=== PATIENT | female | born 1945 | race Caucasian/White ===

== ENCOUNTER 2024-08-01 10:34 | Emergency (ER) | payer MEDICARE, OTHER, SELFPAY ==
[2024-08-01 10:34] VITALS: BP 137/116; PULSE 158; RESP 22; TEMP 36; O2SAT 98
--- NOTE | 2024-08-01 10:50 | EKG12_ITS ---
Test Reason : PALP Blood Pressure : */* mmHG Vent. Rate : 136 BPM Atrial Rate : 300 BPM P-R Int : * ms QRS Dur : 74 ms QT Int : 270 ms P-R-T Axes : * 28 -43 degrees QTcB Int : 406 ms Atrial flutter with variable A-V block ST depression, consider subendocardial injury Abnormal ECG Confirmed by JAYLEN CASTILLO, MAYNOR ([id number]), order editor MIKE NEWMAN ([id number]) on 08/03/2024 10:44:14 AM Referred By: JANNY/DWIGHT Confirmed By: MAYNOR YORK MD
[2024-08-01 10:51] VITALS: BMI 20.9
--- NOTE | 2024-08-01 10:57 | EKG12_ITS ---
Test Reason : REPEAT Blood Pressure : */* mmHG Vent. Rate : 76 BPM Atrial Rate : 76 BPM P-R Int : 156 ms QRS Dur : 76 ms QT Int : 396 ms P-R-T Axes : 80 -1 27 degrees QTcB Int : 445 ms Sinus rhythm with Premature atrial complexes with Aberrant conduction Junctional ST depression, probably normal Borderline ECG Confirmed by JAYLEN CASTILLO, MAYNOR ([id number]), editorial project manager MIKE NEWMAN ([id number]) on 08/03/2024 10:44:03 AM Referred By: Confirmed By: MAYNOR YORK MD
--- NOTE | 2024-08-01 10:59 | ED.VIS.CHEST ---
HPI History of Present Illness Chief Complaint: Palpitations Informant: patient Narrative Narrative: 79-year-old female presenting to the emergency room with a chief complaint of palpitations. Patient states she has a history of atrial fibrillation once every 6 months will have about a 10-minute episode of it before it resolves. This particular episode started about an hour and a half ago after she had already been up for a day. She states that it has not gone away and her is here at the hospital so she came to emergency. She takes atenolol. She sees cardiology through [facility] in [place]. She is not on a blood thinner but does state that she has had prior pulmonary embolism. Patient is not experiencing any chest pain pleuritic pain or significant dyspnea. No syncope. Patient states that she has had prior echocardiogram and that something did not close all the way. [facility] Medical History (Updated 08/01/24 @ 11:[address] Sushil Rogers, DO) Paroxysmal atrial fibrillation Cataract fragments in eye following cataract surgery Cataract Squamous cell carcinoma Cholecystectomy planned Tonsillectomy planned Hypertension High cholesterol Home Medications ?Medication ?Instructions ?Recorded ?Last Taken ?Type amlodipine 2.5 mg tablet 2.5 mg PO DAILY 08/01/24 Unknown History apixaban 5 mg tablet (Eliquis) 5 mg PO BID #60 tabs 08/01/24 Unknown Rx aspirin 81 mg capsule 81 mg PO DAILY 08/01/24 Unknown History atenolol 50 mg tablet 50 mg PO DAILY 08/01/24 Unknown History calcium carb-ergocalciferol (vit 1 tab PO DAILY 08/01/24 Unknown History D2) 600 mg calcium-200 unit tablet dorzolamide 2 % eye drops 2 drp RIGHT EYE BID 08/01/24 Unknown History glucosamine sulfate 500 mg tablet 1,000 mg PO DAILY 08/01/24 Unknown History (Glucosamine) irbesartan 300 mg tablet (Avapro) 150 mg PO DAILY 08/01/24 Unknown History isosorbide mononitrate 20 mg tablet 60 mg PO DAILY 08/01/24 Unknown History latanoprost 0.005 % eye drops 1 drp EACH EYE QPM 08/01/24 Unknown History multivitamin 1 tab PO DAILY 08/01/24 Unknown History rosuvastatin 10 mg tablet (Crestor) 10 mg PO DAILY 08/01/24 Unknown History Allergy/AdvReac Type Severity Reaction Status Date / Time cephalexin Allergy Mild Hives Verified 08/01/24 10:54 povidone-iodine (From Allergy Mild Rash Verified 08/01/24 10:54 Betadine) Surgical History S/P Mohs surgery for basal cell carcinoma H/O parotidectomy History of colon resection Hx of appendectomy H/O: hysterectomy H/O shoulder surgery Social History Smoking Status: Never smoker ROS ROS ED Constitutional Constitutional ED: Denies chills, fever(s) or weight loss Eyes Eyes: Denies change in vision or diplopia ENT ENT ED: Denies ear pain, rhinorrhea or sore throat Cardiovascular Cardiovascular: Reports palpitations and racing heartbeat; Denies chest pain or orthopnea Respiratory/Chest Respiratory/Chest: Denies cough, dyspnea or orthopnea Gastrointestinal Gastrointestinal: Denies abdominal pain, diarrhea, nausea or vomiting Genitourinary Genitourinary ED: Denies dysuria, hematuria or urinary frequency Musculoskeletal Musculoskeletal: Denies arthralgias or myalgias Integumentary Denies abscess or rash Neurologic Neurologic: Denies headache(s) or weakness Psychiatric Psychiatric: Denies anxiety, depression, suicidal ideation or suicidal thoughts Endocrine Endocrinology: Denies polydipsia, polyphagia or polyuria Allergic/Immunologic Allergic/Immunologic ED: Denies mouth swelling, tongue swelling or urticaria EXAM Physical Exam Const Vital Signs: 08/01/24 10:34 08/01/24 10:52 08/01/24 11:34 Temperature 96.8 F L Temperature Source Temporal Pulse Rate 158 H 79 Respiratory Rate 22 H 16 Respiratory Effort Normal Respiratory Pattern Normal Blood Pressure 137/116 H 170/90 H Blood Pressure Mean 123 116 Pulse Ox 98 97 Oxygen Delivery Method Room Air Positive well nourished and well developed General Appearance ED: well developed and NAD HEENT Reports normocephalic, head/scalp atraumatic and moist mucous membranes Eyes PERRL and EOMs intact bilaterally Neck no lymphadenopathy, supple and no JVD Resp normal respiratory effort and clear to auscultation bilaterally Cardio no murmurs Rate: tachycardic Rhythm: abnormal rhythm irregularly irregular GI normal to inspection, nondistended, normoactive bowel sounds and non-tender Palpation: soft Back/Spine no CVA tenderness and normal ROM Extremity normal to inspection General Extremety ED: Negative for edema General Extremity: Negative for edema Neuro oriented x3 and CN's II-XII intact bilaterally Sensorium / Orientation: alert Motor Exam: strength 5/5 throughout Psych mental status grossly normal Mood & Affect: Negative for depressed or tearful Skin no rashes or lesions noted and no wounds MDM MDM MDM Narrative Medical decision making narrative: Differential diagnosis includes but not limited to cardiac dysrhythmia electrolyte abnormality dehydration cardiogenic hypotension Patient performed a Valsalva maneuver and converted to a normal sinus rhythm. Patient was observed here in the department. BMP and magnesium were obtained. If the patient does have valvular heart disease she would have a [id number] score of 7 (age, female, hypertension, thromboembolism) but even without it would have a chads Vascor of 5. Patient denies any history of GI bleeding or intracranial hemorrhage. She states that she was previously on an anticoagulant when she had her pulmonary embolism. She does not know why she is not on one now. Patient has remained in a normal sinus rhythm. Her sodium potassium magnesium within normal limits glucose noted to be 148. She has been up ambulating. This point patient was discussed with cardiology. Plan will be outpatient follow-up. She will continue her atenolol. We will begin Eliquis. History & Record Review Discussion w/independent historian: Patient Lab Data Attestation: I reviewed the patient's lab results. Labs: Laboratory Results - last 24 hr 08/01/24 11:12 Sodium 142 Potassium 3.9 Chloride 108 H Carbon Dioxide 30.0 Anion Gap 4 L BUN 12 Creatinine 0.88 Estim Creat Clear Calc 39.65 Est GFR (MDRD) Af Amer 79 Est GFR (MDRD) Non-Af 65 BUN/Creatinine Ratio 13.6 Glucose 148 H Calcium 9.3 Magnesium 1.8 EKG Initial EKG: Attestation: I personally reviewed and interpreted this EKG as follows: Comments: Atrial fibrillation with ventricular rate of 136 bpm. Follow-up EKG: Attestation: I personally reviewed and interpreted this EKG as follows: Comments: Sinus rhythm with PAC. Ventricular rate 76 bpm Management Discussion w/another healthcare provider: [facility] (Dr Hairston) Discharge Plan Triage Chief Complaint: Palpitations ED Provider: Sushil Rogers Dx/Rx/DC Orders Clinical Impression: AF (paroxysmal atrial fibrillation) Instructions: AFib Dc Prescriptions: New Eliquis 5 mg tablet 5 mg PO BID Qty: 60 0RF No Action atenolol 50 mg tablet 50 mg PO DAILY irbesartan [Avapro] 300 mg tablet 150 mg PO DAILY amlodipine 2.5 mg tablet 2.5 mg PO DAILY aspirin 81 mg capsule 81 mg PO DAILY isosorbide mononitrate 20 mg tablet 60 mg PO DAILY Rx Instructions: give doses 7 hrs apart rosuvastatin [Crestor] 10 mg tablet 10 mg PO DAILY multivitamin Tablet 1 tab PO DAILY calcium carbonate-vitamin D2 600 mg calcium- 200 unit tablet 1 tab PO DAILY glucosamine sulfate [Glucosamine] 500 mg tablet 1,000 mg PO DAILY Rx Instructions: administer with a meal latanoprost 0.005 % drops 1 drp EACH EYE QPM dorzolamide 2 % drops 2 drp RIGHT EYE BID Primary Care Provider: Rolly Becerril Referrals: Dagoberto Hairston MD [Med Staff - Active Staff] - As soon as possible (for local cardiology) NOT,DEFINED [Non-Staff] - Activity Restrictions/Additional Instructions: Please follow-up with either your speech writer in [place] or with [facility] (as above) Atrial fibrillation is very difficult as it comes and goes with no particular reason why. He may try bearing down like we did today as an effort to have it resolved. We did not identify a reason at this time why you are not on a blood thinner. We are recommending starting Eliquis at this time unless there is a particular reason why you are not on it that we are not aware of. Print Language: Faroese
[2024-08-01 11:34] VITALS: BP 170/90; PULSE 79; RESP 16; O2SAT 97
[2024-08-01 11:40] LABS: Anion Gap 4 (5-15); BUN 12 mg/dL (7-18); BUN/Creat Ratio 13.6 RATIO (10-20); Calcium,Total 9.3 mg/dL (8.5-10.1); Chloride 108 mmol/L (98-107); Creatinine, Serum 0.88 mg/dL (0.55-1.02); EST Glomerular Filtration Rate 65 mL/min (>60); Est Glom Filt Rate - Afr Amer 79 mL/min (>60); Estimated Creatinine Clearance 39.65 ml/min; Glucose 148 mg/dL (74-106); Magnesium 1.8 mg/dL (1.6-2.6); Potassium 3.9 mmol/L (3.5-5.1); Sodium Level 142 mmol/L (136-145)
[2024-08-01 11:59] VITALS: BP 170/90; PULSE 79; RESP 16; TEMP 37.2; O2SAT 97
== END 2024-08-01 12:16 | disposition home or self-care (01) ==
LOC: ED 11:19
PROVIDERS: Emergency Provider Emergency Medicine; PCP Family Medicine; Visit Provider Emergency Medicine
DX: I48.0 Paroxysmal atrial fibrillation (principal); R00.2 Palpitations; I10 Essential (primary) hypertension; Z90.710 Acquired absence of both cervix and uterus; E78.00 Pure hypercholesterolemia, unspecified; Z90.49 Acquired absence of other specified parts of digestive tract; Z79.899 Other long term (current) drug therapy; Z79.82 Long term (current) use of aspirin
CPT/HCPCS: 80048; 83735; 93005; 99284; A4216

== ENCOUNTER 2024-08-06 00:37 | Emergency (ER) | payer MEDICARE, OTHER, SELFPAY ==
[2024-08-06 00:38] VITALS: BP 196/96; PULSE 88; RESP 18; TEMP 36.9; O2SAT 95; BMI 22.4
--- NOTE | 2024-08-06 00:55 | EKG12_ITS ---
Test Reason : PALPS Blood Pressure : */* mmHG Vent. Rate : 73 BPM Atrial Rate : 73 BPM P-R Int : 164 ms QRS Dur : 82 ms QT Int : 390 ms P-R-T Axes : 88 6 51 degrees QTcB Int : 429 ms Normal sinus rhythm Normal ECG Confirmed by JAYLEN CASTILLO, MAYNOR ([id number]), communications editor MIKE NEWMAN ([id number]) on 08/07/2024 7:10:11 AM Referred By: Confirmed By: MAYNOR YORK MD
--- NOTE | 2024-08-06 00:56 | EX.ED.DYSGE1 ---
HPI History of Present Illness Chief Complaint: Palpitations Informant: patient and EMS Narrative Narrative: 79-year-old female presenting to the emergency room with a chief complaint of palpitations. Patient has a history of paroxysmal A-fib. She was seen in the emergency department on by myself. She converted to a normal sinus rhythm out of A-fib RVR with Valsalva maneuver. Patient states that she was in A-fib for about 2 hours and she was trying many things to make it go away but it would not so she called the ambulance. EMS states that it appeared that she was in A-fib but that she converted. Patient was prescribed Eliquis her last ED visit based on her [id number] score but she could not afford it. She scheduled a cardiology appointment for the end of August. She currently is taking atenolol 50 mg once a day. Due to hypertension she is currently on amlodipine and that is a newer medication. Patient states that she is under a lot of stress with her being in the hospital and receiving therapy and she has spent almost every day here with him. [facility] Medical History Paroxysmal atrial fibrillation Cataract fragments in eye following cataract surgery Cataract Squamous cell carcinoma Cholecystectomy planned Tonsillectomy planned Hypertension High cholesterol Home Medications ?Medication ?Instructions ?Recorded ?Last Taken ?Type amlodipine 2.5 mg tablet 2.5 mg PO DAILY 08/01/24 Unknown History apixaban 5 mg tablet (Eliquis) 5 mg PO BID #60 tabs 08/01/24 Unknown Rx aspirin 81 mg capsule 81 mg PO DAILY 08/01/24 Unknown History atenolol 50 mg tablet 50 mg PO DAILY 08/01/24 Unknown History calcium carb-ergocalciferol (vit 1 tab PO DAILY 08/01/24 Unknown History D2) 600 mg calcium-200 unit tablet dorzolamide 2 % eye drops 2 drp RIGHT EYE BID 08/01/24 Unknown History glucosamine sulfate 500 mg tablet 1,000 mg PO DAILY 08/01/24 Unknown History (Glucosamine) irbesartan 300 mg tablet (Avapro) 150 mg PO DAILY 08/01/24 Unknown History isosorbide mononitrate 20 mg tablet 60 mg PO DAILY 08/01/24 Unknown History latanoprost 0.005 % eye drops 1 drp EACH EYE QPM 08/01/24 Unknown History multivitamin 1 tab PO DAILY 08/01/24 Unknown History rosuvastatin 10 mg tablet (Crestor) 10 mg PO DAILY 08/01/24 Unknown History Allergy/AdvReac Type Severity Reaction Status Date / Time cephalexin Allergy Mild Hives Verified 08/06/24 00:38 povidone-iodine (From Allergy Mild Rash Verified 08/06/24 00:38 Betadine) Surgical History S/P Mohs surgery for basal cell carcinoma H/O parotidectomy History of colon resection Hx of appendectomy H/O: hysterectomy H/O shoulder surgery Social History Smoking Status: Never smoker ROS ROS ED Constitutional Constitutional ED: Denies chills, fever(s) or weight loss Eyes Eyes: Denies change in vision or diplopia ENT ENT ED: Denies ear pain, rhinorrhea or sore throat Cardiovascular Cardiovascular: Reports palpitations and racing heartbeat; Denies chest pain or orthopnea Respiratory/Chest Respiratory/Chest: Denies cough, dyspnea or orthopnea Gastrointestinal Gastrointestinal: Denies abdominal pain, diarrhea, nausea or vomiting Genitourinary Genitourinary ED: Denies dysuria, hematuria or urinary frequency Musculoskeletal Musculoskeletal: Denies arthralgias or myalgias Integumentary Denies abscess or rash Neurologic Neurologic: Denies headache(s) or weakness Psychiatric Psychiatric: Denies anxiety, depression, suicidal ideation or suicidal thoughts Endocrine Endocrinology: Denies polydipsia, polyphagia or polyuria Allergic/Immunologic Allergic/Immunologic ED: Denies mouth swelling, tongue swelling or urticaria EXAM Physical Exam Const Vital Signs: 08/06/24 00:38 08/06/24 00:42 Temperature 98.5 F Temperature Source Oral Pulse Rate 88 Respiratory Rate 18 Respiratory Effort Normal Blood Pressure 196/96 H Blood Pressure Mean 129 Pulse Ox 95 Oxygen Delivery Method Room Air Positive well nourished and well developed General Appearance ED: well developed and NAD HEENT Reports normocephalic, head/scalp atraumatic and moist mucous membranes Eyes PERRL and EOMs intact bilaterally Neck no lymphadenopathy, supple and no JVD Resp normal respiratory effort and clear to auscultation bilaterally Cardio regular rate, regular rhythm and no murmurs GI normal to inspection, nondistended, normoactive bowel sounds and non-tender Palpation: soft Back/Spine no CVA tenderness and normal ROM Extremity normal to inspection General Extremety ED: Negative for edema General Extremity: Negative for edema Neuro oriented x3 and CN's II-XII intact bilaterally Sensorium / Orientation: alert Motor Exam: strength 5/5 throughout Psych mental status grossly normal Mood & Affect: anxious; Negative for depressed or tearful Skin no rashes or lesions noted and no wounds MDM MDM MDM Narrative Medical decision making narrative: Differential diagnosis includes cardiac dysrhythmia electrolyte abnormality syncope hypertension anxiety Patient was placed on the monitor appears in a sinus rhythm. EKG confirms a normal sinus rhythm ventricular rate of 73 bpm. She received an extra dose of atenolol heart rate at rest is in the 60s. This point the patient just recently underwent electrolyte testing check of hemoglobin I do not feel strongly need to repeat it. Patient will be discharged home. We talked about a pill in the pocket technique in addition to the Valsalva maneuvers as an effort to get her back into a sinus rhythm. I would recommend continue to follow-up with cardiology History & Record Review Discussion w/independent historian: Patient EKG Initial EKG: Attestation: I personally reviewed and interpreted this EKG as follows: Comments: Normal sinus rhythm ventricular rate of 73 bpm Discharge Plan Triage Chief Complaint: Palpitations ED Provider: Sushil Rogers Dx/Rx/DC Orders Clinical Impression: AF (paroxysmal atrial fibrillation) Instructions: AFib Prescriptions: No Action atenolol 50 mg tablet 50 mg PO DAILY irbesartan [Avapro] 300 mg tablet 150 mg PO DAILY amlodipine 2.5 mg tablet 2.5 mg PO DAILY aspirin 81 mg capsule 81 mg PO DAILY isosorbide mononitrate 20 mg tablet 60 mg PO DAILY Rx Instructions: give doses 7 hrs apart rosuvastatin [Crestor] 10 mg tablet 10 mg PO DAILY multivitamin Tablet 1 tab PO DAILY calcium carbonate-vitamin D2 600 mg calcium- 200 unit tablet 1 tab PO DAILY glucosamine sulfate [Glucosamine] 500 mg tablet 1,000 mg PO DAILY Rx Instructions: administer with a meal latanoprost 0.005 % drops 1 drp EACH EYE QPM dorzolamide 2 % drops 2 drp RIGHT EYE BID Eliquis 5 mg tablet 5 mg PO BID Qty: 60 0RF Primary Care Provider: Rolly Becerril Referrals: Rolly Becerril MD [Primary Care Provider] - Activity Restrictions/Additional Instructions: Follow-up with cardiology as scheduled If symptoms return and it is not going away he may try another half tablet to 1 whole tablet of atenolol to see if that helps. Print Language: Kinyarwanda Disposition Disposition: Home, Self Care
[2024-08-06] MEDS: Atenolol 25 MG Tablet PO (01:10)
[2024-08-06 02:27] VITALS: BP 161/79; PULSE 68; RESP 18; TEMP 36.9; O2SAT 96
[2024-08-06 02:38] VITALS: BP 160/76; PULSE 75; RESP 18; O2SAT 98
== END 2024-08-06 03:05 | disposition home or self-care (01) ==
PROVIDERS: Emergency Provider Emergency Medicine; PCP Family Medicine; Visit Provider Emergency Medicine
DX: I48.0 Paroxysmal atrial fibrillation (principal); I10 Essential (primary) hypertension; Z90.710 Acquired absence of both cervix and uterus; E78.00 Pure hypercholesterolemia, unspecified; R00.2 Palpitations; Z79.899 Other long term (current) drug therapy; Z90.49 Acquired absence of other specified parts of digestive tract; Z79.82 Long term (current) use of aspirin; Z85.828 Personal history of other malignant neoplasm of skin
CPT/HCPCS: 93005; 99285; A4216